=== PATIENT | female | born 1960 | race Caucasian/White ===

== ENCOUNTER 2022-11-17 09:22 | Emergency (ER) | payer MEDICAID ==
[~2022-11-17] VITALS: Ht 167.6 cm; Wt 54.4 kg
--- NOTE | 2022-11-17 09:27 | NUR ---
CALLED TO TRIAGE, NO RESPONSE
--- NOTE | 2022-11-17 11:27 | NUR ---
X RAY IMAGE TAKEN.
[2022-11-17] MEDS ORDERED: HYDROCODONE/APAP 10/325MG TABLET ONE (12:59)
[2022-11-17] MEDS ORDERED: HYDROCODONE/APAP 5/325MG TABLET PO ONE (14:00)
[2022-11-17] MEDS ORDERED: MORPHINE SULFATE INJ 2 MG/ML DISP.SYRIN IV ONE (14:00)
[2022-11-17] MEDS ORDERED: MORPHINE SULFATE INJ 2 MG/ML DISP.SYRIN ONE (14:01)
--- NOTE | 2022-11-17 14:09 | NUR ---
morphine given IM ORDERED BY DR GAN. IM AT RT DELTOID
[2022-11-17] MEDS ORDERED: HYDROCODONE/APAP 5/325MG TABLET ONE (14:11)
--- NOTE | 2022-11-17 14:31 | NUR ---
oral order of norco 10-325 given to pt.
[2022-11-17 14:42] VITALS: BP 103/76
== END 2022-11-17 14:42 | disposition home or self-care (01) ==
LOC: ER 09:28
DX: S22.070A Wedge compression fracture of T9-T10 vertebra, initial encounter for closed fracture (principal); M54.6 Pain in thoracic spine; E03.9 Hypothyroidism, unspecified; Z98.890 Other specified postprocedural states; Z60.2 Problems related to living alone; W01.0XXA Fall on same level from slipping, tripping and stumbling without subsequent striking against object, initial encounter; Y93.89 Activity, other specified; Y92.89 Other specified places as the place of occurrence of the external cause; Y99.8 Other external cause status
CPT/HCPCS: 99285; 96374; 72128; J2270